=== PATIENT | female | born 1990 | race Caucasian/White ===

== ENCOUNTER 2022-10-10 17:49 | Emergency (ER) | payer OTHER, MEDICAID, SELFPAY ==
[2022-10-10] VITALS (16 sets, daily range): BP systolic 94–143; BP diastolic 44–70; PULSE 44–66; RESP 16–43; TEMP 36.1; O2SAT 95–100; BMI 23.0
--- NOTE | 2022-10-10 18:48 | ED_ITS ---
HPI - General Adult General Chief complaint: Abdominal Pain Stated complaint: Abd pain, vomiting, diarrhea x2 days Time Seen by Provider: 10/10/22 18:47 History of Present Illness HPI narrative: 32-year-old woman with no significant medical history presents with 36 hours of severe nausea vomiting and diarrhea. She continues to have diarrhea she is fatigued and she continues to have dry heaves in the emergency department even after IV Zofran. She had tried oral Zofran prior to arrival. She describes no fevers, cough, palpitations, headaches. Her belly is tender simply from the act of vomiting but otherwise unremarkable. She does not believe she is . She is not had similar events. She notes that she does regularly smoke about a g of marijuana daily. She tried a very hot shower and did not note that it made all that much of a difference. Related Data Allergies Allergy/AdvReac Type Severity Reaction Status Date / Time No Known Drug Allergies Allergy Verified 10/10/22 18:54 Review of Systems Review of Systems Narrative: Pertinent positive and negative findings as per HPI Exam Initial Vital Signs Initial Vital Signs: Vital Signs Temperature 96.9 F L 10/10/22 17:58 Pulse Rate 60 10/10/22 17:58 Respiratory Rate 16 10/10/22 17:58 Blood Pressure 126/58 L 10/10/22 17:58 Pulse Oximetry 95 10/10/22 17:58 Oxygen Delivery Method Room Air 10/10/22 17:58 General: Pale, appears fatigued, still with dry heaves HEENT: Moist mucous membranes, normal sclera with reactive pupils, Respiratory: Lungs are clear to auscultation, no wheezing no rales no rhonchi. Full and symmetrical air movement Cardiac: Regular rate and rhythm no murmurs no bruits Abdomen: Soft, mild diffuse tenderness without rebound or guarding, hyperactive bowel tones, no flank pain. Skin: Pale, Warm and dry, no rashes Neurologic: Grossly neurologically intact with no obvious asymmetries or abnormalities Extremities: No trauma, well perfused. No skin tenting to suggest severe dehydration Psych: Cooperative, appropriate insight and affect Course Orders Ordered: ED Orders 10/10/22 18:04 EKG-12 Lead Stat 10/10/22 18:40 Complete Blood Count AUTO DIFF Stat Comprehensive Metabolic Panel Stat Lipase Stat 10/10/22 20:00 GI Panel (Film Array) Stat 10/10/22 20:43 CT abdomen pelvis w con Stat Hydromorphone HCl (Hydromorphone 0.5 Mg Inj) 0.5 mg IV Q15MIN PRN PRN Reason: Pain, Last Admin: 10/10/22 20:50 Dose: 0.5 mg Documented By: NURIA Ondansetron HCl (Ondansetron 4 Mg/2 Ml Inj) 4 mg IV NOW PRN PRN Reason: Nausea And Vomiting Last Admin: 10/10/22 18:51 Dose: 4 mg Documented By: NURIA Discontinued Medications Diphenhydramine HCl (Diphenhydramine 50 Mg/Ml Vial) 25 mg IV NOW ONE Stop: 10/10/22 18:56 Last Admin: 10/10/22 19:08 Dose: 25 mg Documented By: NURIA Haloperidol (Haloperidol 5 Mg/Ml Vial) 2 mg IV NOW ONE Stop: 10/10/22 18:56 Last Admin: 10/10/22 19:11 Dose: 2 mg Documented By: NURIA Sodium Chloride (Normal Saline 0.9%) 1,000 mls @ 1,000 mls/hr IV BOLUS ONE Stop: 10/10/22 19:50 Last Infusion: 10/10/22 19:40 Dose: 0 mls/hr Documented By: Admin: 10/10/22 18:53 Dose: 1,000 mls/hr Documented By: NURIA Sodium Chloride (Normal Saline 0.9%) 1,000 mls @ 1,000 mls/hr IV BOLUS ONE Stop: 10/10/22 19:54 Last Infusion: 10/10/22 21:37 Dose: 0 mls/hr Documented By: Admin: 10/10/22 20:31 Dose: 1,000 mls/hr Documented By: NURIA Magnesium Sulfate (Magnesium Sulfate) 2 gm in 50 mls @ 150 mls/hr IV NOW ONE Stop: 10/10/22 20:06 Last Infusion: 10/10/22 20:29 Dose: 0 mls/hr Documented By: NURIA Co-signed By: LOVELY Admin: 10/10/22 20:05 Dose: 150 mls/hr Documented By: NURIA Co-signed By: LOVELY Vital Signs Vital signs: Vital Signs - 8 hr 10/10/22 17:58 10/10/22 18:57 10/10/22 19:00 Temperature 96.9 F L Pulse Rate 60 55 L 58 L Respiratory Rate 16 Blood Pressure 126/58 L Pulse Oximetry 95 100 Oxygen Delivery Method Room Air 10/10/22 19:30 10/10/22 19:32 10/10/22 19:32 Temperature Pulse Rate 44 L 45 L Respiratory Rate 26 H Blood Pressure 143/66 H Pulse Oximetry 100 100 Oxygen Delivery Method 10/10/22 20:00 10/10/22 20:01 10/10/22 20:01 Temperature Pulse Rate 49 L 54 L Respiratory Rate 22 28 H Blood Pressure 100/70 Pulse Oximetry 100 100 Oxygen Delivery Method Room Air 10/10/22 20:30 10/10/22 20:30 10/10/22 21:04 Temperature Pulse Rate 66 48 L Respiratory Rate 43 H 40 H Blood Pressure 108/66 Pulse Oximetry 100 Oxygen Delivery Method 10/10/22 21:11 10/10/22 21:11 Temperature Pulse Rate 52 L Respiratory Rate 22 Blood Pressure 105/51 L Pulse Oximetry 100 Oxygen Delivery Method Medical Decision Making Lab Data 10/10/22 18:40 10/10/22 18:40 Labs: Lab Results 10/10/22 10/10/22 10/10/22 Range/Units 18:40 18:40 20:00 WBC 11.7 H (4.5-11.0) X10^3/uL RBC 3.78 L (4.0-5.2) X10^6/uL Hgb 11.9 L (12.0-16.0) g/dL Hct 35.0 L (36-46) % MCV 92.7 (80-100) fL MCH 31.5 (26-34) PG MCHC 34.0 (30-36) % RDW 13.2 (11.6-14.8) % Plt Count 214 (150-400) X10^3/uL Neut % (Auto) 88.6 H (50-75) % Lymph % (Auto) 7.8 L (25-40) % [place] % (Auto) 3.1 (3-14) % Eos % (Auto) 0.0 L (2-4) % Baso % (Auto) 0.5 (0-2) % Neut # (Auto) 36158 H (1452-7051) /uL Lymph # (Auto) 900 L (9186-3971) /uL [place] # (Auto) 400 (0-900) /uL Eos # (Auto) 0 (0-450) /uL Baso # (Auto) 100 (0-100) /uL Sodium 138 (137-145) mmol/L Potassium 3.2 L (3.4-5.1) mmol/L Chloride 108 H (98-107) mmol/L Carbon Dioxide 15 L (22-32) mmol/L BUN 11 (7-17) mg/dL Creatinine 0.83 (0.52-1.04) mg/dL Estimated GFR > 60 (>60) mL/min BUN/Creatinine Ratio 13.3 (6-22) Glucose 131 H (70-100) mg/dL Calcium 9.2 (8.4-10.2) mg/dL Total Bilirubin 0.7 (0.2-1.3) mg/dL AST 30 (14-36) IU/L ALT 25 (<35) IU/L Alkaline Phosphatase 69 (38-126) U/L Total Protein 7.8 (6.3-8.2) g/dL Albumin 4.6 (3.5-5.0) g/dL Globulin 3.2 (1.7-4.1) g/dL Albumin/Globulin Ratio 1.4 (1.0-2.8) Lipase 122 (23-300) U/L Stl C. cayetanensis PCR Not detected (Not Detect) Stool Rotavirus (PCR) Not detected (Not Detect) Stool Adenovirus (PCR) Not detected (Not Detect) Stool Astrovirus (PCR) Not detected (Not Detect) Stool Cryptosporidium PCR Not detected (Not Detect) Stl E.coli Shiga Tox PCR Not detected (Not Detect) St Sh/Enteroin Ecoli PCR Not detected (Not Detect) Stool E coli O157 PCR Not Reportable Stl Enterotoxigenic E PCR Not detected (Not Detect) Stool EPEC (PCR) Not detected (Not Detect) Stl E. histolytica PCR Not detected (Not Detect) Stool Giardia Lamblia PCR Not detected (Not Detect) Stool Sapovirus (PCR) Not detected (Not Detect) Stl P. shigelloides PCR Not detected (Not Detect) St Y.enterocolitica PCR Not detected (Not Detect) Stool Vibrio (PCR) Not detected (Not Detect) Stl Vibrio cholerae PCR Not detected (Not Detect) Stl Enteroaggr Ecoli PCR Not detected (Not Detect) Stl Norovirus GI/GII PCR Not detected (Not Detect) Campylobacter (PCR) Not detected (Not Detect) C. difficile Tox (PCR) Not detected (Not Detect) Salmonella (PCR) Not detected (Not Detect) Point of Care Testing Test Results Negative Urine Dip Bedside Urine Glucose 100 mg/dl Bedside Urine Ketone +++ 80 Urine Specific [place] 1.020 Bedside Urine Occult Blood - Negative Bedside Urine pH 6.0 Bedside Urine Protein + 30 Bedside Urine Urobilinogen - Negative Bedside Urine Nitrite - Negative Bedside Urine Leukocytes - Negative Esterase Point of care testing: Point of Care Testing Test Results Negative Urine Dip Bedside Urine Glucose 100 mg/dl Bedside Urine Ketone +++ 80 Urine Specific [place] 1.020 Bedside Urine Occult Blood - Negative Bedside Urine pH 6.0 Bedside Urine Protein + 30 Bedside Urine Urobilinogen - Negative Bedside Urine Nitrite - Negative Bedside Urine Leukocytes - Negative Esterase MDM Narrative Medical decision making narrative: CC: 36 hours of severe nausea vomiting diarrhea. Is an acute complaint uncertain prognosis Complicating co-morbidities: Regular marijuana use Data collected from: patient, partner Differential considered: Viral gastroenteritis, cannabinoid hyperemesis syndrome, intra-abdominal infection Exam documented above, pertinent findings include: Fairly benign exam. Despite 36 hours of vomiting and diarrhea clinically she is not dramatically dehydrated. Lab Test results independently reviewed as above. Pertinent findings: CBC shows mild leukocytosis at 11.7 with neutrophils at 88.6%. Mild anemia at 11.9 and 35.0 Chemistries show mildly low potassium at 3.2. Creatinine is appropriate. Liver studies are unremarkable Lipase is reassuring Stool does not show Campylobacter C diff or Salmonella Independently reviewed EKG sinus Freddie at a rate of 48. QTC is 500 milliseconds. Nonspecific T-wave changes. No acute ischemia Imaging studies independently reviewed: CT scan shows findings suggestive of mild gastritis and colitis with no abscess bowel obstruction free fluid or air. Appendix is normal. Re-evaluations:730pm patient had a brief episode of sinus bradycardia to the mid 40s after IV Haldol was given. EKGs obtained. 845pm pain is increasing. Dilaudid is added for pain control. With no other significant abnormalities, CT scan of the abdomen is ordered. Patient is aware of concerns and current plans 12:20 a.m. patient is feeling significantly improved. Small dose of Dilaudid helped her body relax completely. She is now sleeping on Gatorade and finding that she is not having continued nausea. Has not had any additional diarrhea since coming to the emergency department Discussion: 32-year-old woman with acute nausea vomiting diarrhea with dehydration mild hypokalemia. Responded nicely to fluids Zofran a single dose of Dilaudid. We did discuss possibility of cannabinoid hyperemesis syndrome however I do not think that that is the etiology of her symptoms today. She is still considering stopping marijuana completely. She has Zofran at home to help with nausea. We discussed reasons to return to the emergency department including increasing pain, fevers or new findings. Questions are answered and she is safe for discharge home Discharge Plan Departure Patient Disposition: Home Clinical Impression: Gastroenteritis, Nausea vomiting and diarrhea Instructions: DI for Viral Gastroenteritis -- Adult Activity Restrictions/Additional Instructions: Thank you for coming in today Your blood work was actually very reassuring. The CT scan did not show any acute abnormalities would require surgical intervention. There was some minor swelling in the stomach and gut wall suggesting a gastroenteritis which is consistent with your presentation. You can use Zofran to help with nausea. I would recommend simple fluids and beginning eating with simple foods like bananas, rice, applesauce toast until your truly feeling back to normal. If you find that you are getting worse or develop any new symptoms, please feel free to return to the emergency department for further evaluation. Stand Alone Forms: Patient Portal/API
[2022-10-10] MEDS: ONDANSETRON 4 MG/2 ML INJ IV (18:51)
[2022-10-10] MEDS: SODIUM CHLORIDE 0.9% 1,000 ML 1000 ML IV ×2 (18:53→20:31)
[2022-10-10 18:59] LABS: Add Manual Diff / Slide Review NO; Basophils Absolute Auto 100 /uL (0-100); Basophils Percent Auto 0.5 % (0-2); Eosinophils Absolute Auto 0 /uL (0-450); Hemoglobin 11.9 g/dL (12.0-16.0); Lymphocytes Absolute Auto 900 /uL (1100-4500); Lymphocytes Percent Auto 7.8 % (25-40); Mean Corpuscular Hemoglobin 31.5 PG (26-34); Mean Corpuscular Volume 92.7 fL (80-100); Monocytes Absolute Auto 400 /uL (0-900); Monocytes Percent Auto 3.1 % (3-14); Neutrophils Absolute Auto 10300 /uL (1500-7000); Neutrophils Percent Auto 88.6 % (50-75); Platelet Count 214 X10^3/uL (150-400); Red Blood Cell Count 3.78 X10^6/uL (4.0-5.2); Red Cell Distribution Width 13.2 % (11.6-14.8); White Blood Cell Count 11.7 X10^3/uL (4.5-11.0)
[2022-10-10] MEDS: diphenhydrAMINE 50 MG/ML VIAL 25 MG IV (19:08)
[2022-10-10] MEDS: HALOPERIDOL 5 MG/ML VIAL 2 MG IV (19:11)
[2022-10-10 19:18] LABS: Alanine Aminotransferase 25 IU/L (<35); Albumin 4.6 g/dL (3.5-5.0); Albumin Globulin Ratio 1.4 (1.0-2.8); Alkaline Phosphatase 69 U/L (38-126); Aspartate Aminotransferase 30 IU/L (14-36); BUN Creatinine Ratio 13.3 (6-22); Bilirubin Total 0.7 mg/dL (0.2-1.3); Blood Urea Nitrogen 11 mg/dL (7-17); Calcium 9.2 mg/dL (8.4-10.2); Carbon Dioxide 15 mmol/L (22-32); Chloride 108 mmol/L (98-107); Estimated Glomerular Filt Rate > 60 mL/min (>60); Globulin 3.2 g/dL (1.7-4.1); Glucose 131 mg/dL (70-100); HEMOLYSIS < 15 (0-50); Lipase 122 U/L (23-300); Potassium 3.2 mmol/L (3.4-5.1); Sodium 138 mmol/L (137-145); Total Protein 7.8 g/dL (6.3-8.2)
[2022-10-10] MEDS: MAGNESIUM SULFATE 2 GM/50 ML PIGGYBACK IV (20:05)
--- NOTE | 2022-10-10 20:17 | PC.NURSE ---
Patient denies having any history of heart issues or bradycardia. Pt's significant other asked; What about that condition your mom has?. Patient responded that both her, and her mother, have an irregular rhythm. She states her mother had a full workup done and is fine, also stating that the patients heart is fine. I asked patient to clarify if she had a cardiac work up or has ever seen a spot machine operator. Patient responds with saying she has never seen a spot machine operator and has not had a work up for her heart, ever. Patient denies having shortness of breath, dizziness, or lightheaded. Pt only complains of N/V/D, abdominal cramps/pain.
--- NOTE | 2022-10-10 20:43 | DI.CT.S_ITS ---
PROCEDURE: CT ABDOMEN PELVIS W CON INDICATIONS: abdominal pain TECHNIQUE: After the administration of intravenous contrast, axial sections acquired from the lung bases to the pubic symphysis. Coronal and sagittal reformats were performed. For radiation dose reduction, the following was used: automated exposure control, adjustment of mA and/or kV according to patient size. COMPARISON: None. FINDINGS: Image quality: Excellent. Lung bases: Unremarkable. Heart: No significant findings. ABDOMEN: Liver: Unremarkable. Gallbladder: Gallbladder is within normal limits. Biliary ducts: Unremarkable. Pancreas: Unremarkable. Spleen: Unremarkable. Adrenal Glands: Unremarkable. Kidneys and Ureters: Unremarkable. Stomach and Bowel: There is suggestion of distal gastric wall thickening. No gross small bowel wall thickening. Questionable colonic wall thickening is also noted without significant mesenteric fat stranding. Appendix is visualized in right lower quadrant abdomen and show no gross abnormality. No abscess collection.. Peritoneum: No abnormal intraperitoneal fluid. No free air. Ventral Wall: No hernias. Abdominal Nodes: No retroperitoneal or mesenteric adenopathy by size criteria. Vessels: Aorta and inferior vena cava are normal in size. PELVIS: Pelvic Organs: Uterus and right ovary show no gross abnormality. 1.2 cm left ovarian cyst is noted. Bladder: Unremarkable. Pelvic Nodes: No enlarged lymph nodes. Miscellaneous: No hernias are seen. Bones: No suspicious bony lesions. No acute vertebral body compression fracture. IMPRESSION: 1. Finding is suggestive of mild gastritis and colitis. No abscess collection. No bowel obstruction. No free fluid or free air. Normal appendix. 2. Nonspecific 1.2 cm left ovarian cyst. Dictated by: Dustin Layton M.D. on 10/10/2022 at 21:14 Approved by: Dustin Layton M.D. on 10/10/2022 at 21:17
[2022-10-10] MEDS: HYDROMORPHONE 0.5 MG INJ IV (20:50)
[2022-10-10 21:46] LABS: Campylobacter Not Detected (Not Detect); Clostridium difficile toxin AB Not Detected (Not Detect); Cryptosporidium Not Detected (Not Detect); Cyclospora cayetanensis Not Detected (Not Detect); Enteroaggregative E.coli Not Detected (Not Detect); Enteropathogenic E.coli Not Detected (Not Detect); Enterotoxigenic E.coli It/st Not Detected (Not Detect); Plesiomonsa shigelloides Not Detected (Not Detect); Salmonella Not Detected (Not Detect); Shiga-like toxin-prod E.coli Not Detected (Not Detect); Shigella/Enteroinvasive E.coli Not Detected (Not Detect); Vibrio Not Detected (Not Detect); Vibrio cholerae Not Detected (Not Detect); Yersinia enterocolitica Not Detected (Not Detect)
[2022-10-10 21:47] LABS: Adenovirus F 40/41 Not Detected (Not Detect); Astrovirus Not Detected (Not Detect); Entamoeba histolytica Not Detected (Not Detect); Giardia lamblia Not Detected (Not Detect); Norovirus GI/GII Not Detected (Not Detect); Rotavirus A Not Detected (Not Detect); Sapovirus Not Detected (Not Detect)
[2022-10-11] VITALS: PULSE 60; RESP 22; O2SAT 100
[2022-10-11 00:01] VITALS: BP 92/51; PULSE 52; RESP 17; O2SAT 100
== END 2022-10-11 00:33 | disposition home or self-care (01) ==
PROVIDERS: Emergency Medicine; Emergency Provider Emergency Medicine
DX: K52.9 Noninfective gastroenteritis and colitis, unspecified (principal); R11.2 Nausea with vomiting, unspecified
CPT/HCPCS: 36415; 74177; 80053; 81003; 81025; 83690; 85025; 87507; 93005; 93010; 96361; 96374; 96375; 99284; J1170; J1200; J1630; J2405; J3475; Q9967

== ENCOUNTER 2023-01-18 19:06 | Emergency (ER) | payer OTHER, MEDICAID, SELFPAY ==
[2023-01-18 19:14] VITALS: BP 131/76; PULSE 67; RESP 18; TEMP 36.8; O2SAT 100; BMI 22.3
[2023-01-18] MEDS: SODIUM CHLORIDE 0.9% 1,000 ML 1000 ML IV (20:37)
[2023-01-18] MEDS: ONDANSETRON 4 MG/2 ML INJ IV (20:39)
[2023-01-18 23:45] LABS: Add Manual Diff / Slide Review NO; Basophils Absolute Auto 100 /uL (0-100); Basophils Percent Auto 0.8 % (0-2); Eosinophils Absolute Auto 0 /uL (0-450); Eosinophils Percent Auto 0.3 % (2-4); Hematocrit 35.3 % (36-46); Lymphocytes Absolute Auto 1000 /uL (1100-4500); Mean Corpuscular Hemoglobin 31.8 PG (26-34); Mean Corpuscular Volume 93.7 fL (80-100); Monocytes Absolute Auto 400 /uL (0-900); Monocytes Percent Auto 4.2 % (3-14); Neutrophils Absolute Auto 7400 /uL (1500-7000); Neutrophils Percent Auto 83.7 % (50-75); Platelet Count 255 X10^3/uL (150-400); Red Blood Cell Count 3.77 X10^6/uL (4.0-5.2); White Blood Cell Count 8.9 X10^3/uL (4.5-11.0)
[2023-01-18 23:50] LABS: Alanine Aminotransferase 25 IU/L (<35); Albumin 4.7 g/dL (3.5-5.0); Albumin Globulin Ratio 1.3 (1.0-2.8); Alkaline Phosphatase 72 U/L (38-126); Aspartate Aminotransferase 52 IU/L (14-36); Bilirubin Total 0.5 mg/dL (0.2-1.3); Blood Urea Nitrogen 9 mg/dL (7-17); Calcium 9.7 mg/dL (8.4-10.2); Carbon Dioxide 22 mmol/L (22-32); Chloride 105 mmol/L (98-107); Estimated Glomerular Filt Rate > 60 mL/min (>60); Globulin 3.7 g/dL (1.7-4.1); Glucose 105 mg/dL (70-100); HEMOLYSIS 17 (0-50); Lipase 112 U/L (23-300); Potassium 3.8 mmol/L (3.4-5.1); Sodium 138 mmol/L (137-145); Total Protein 8.4 g/dL (6.3-8.2)
[2023-01-18 23:57] VITALS: BP 99/54; PULSE 51; RESP 18; TEMP 36.6; O2SAT 98
--- NOTE | 2023-01-19 00:24 | PC.NURSE ---
pt given water to drink and tolerated it well
--- NOTE | 2023-01-19 01:59 | ED_ITS ---
HPI - General Adult General Chief complaint: Abdominal Pain Stated complaint: Gastroenteritis Time Seen by Provider: 01/19/23 01:59 Source: patient Mode of arrival: Ambulatory History of Present Illness HPI narrative: 33-year-old woman who presents with acute nausea vomiting and diarrhea starting this afternoon initially with diarrhea. She took Zofran almost immediately after the diarrhea but then had an episode of emesis within 10 minutes of taking the Zofran. This is her 3rd episode of probably viral gastroenteritis the summer. The last time that she was sick she started with a high fever and symptoms lasted for approximately 10 days. Today she has not had a fever but multiple other family members have similar symptoms. She briefly wondered if this could be cannabinoid hyperemesis syndrome however with fever and other fam maximo members this is less likely. She has been weaning off marijuana and has had only CBD versions for the last week. Related Data Allergies Allergy/AdvReac Type Severity Reaction Status Date / Time No Known Drug Allergies Allergy Verified 10/10/22 18:54 Review of Systems Review of Systems Narrative: Pertinent positive and negative findings as per HPI Patient History Social History Smoking Status: Never smoker Smoking Status: Never smoker Substance Use Type: does not use Exam Initial Vital Signs Initial Vital Signs: Vital Signs Temperature 98.3 F 01/18/23 19:14 Pulse Rate 67 01/18/23 19:14 Respiratory Rate 18 01/18/23 19:14 Blood Pressure 131/76 01/18/23 19:14 Pulse Oximetry 100 01/18/23 19:14 Oxygen Delivery Method Room Air 01/18/23 19:14 General: Healthy appearing, in no acute distress. Able to give a complete and coherent history. Well-nourished well-developed HEENT: Moist mucous membranes, normal sclera with reactive pupils, Respiratory: Full and symmetrical air movement Cardiac: Regular rate and rhythm no murmurs no bruits Abdomen: Soft, nontender, hyperactive bowel tones, no flank pain Skin: Warm and dry, no rashes Neurologic: Grossly neurologically intact with no obvious asymmetries or abnormalities Extremities: No trauma, well perfused Psych: Cooperative, appropriate insight and affect Course Orders Ordered: ED Orders 01/18/23 19:34 GI Panel (Film Array) Stat 01/18/23 20:32 Complete Blood Count AUTO DIFF Stat Comprehensive Metabolic Panel Stat Lipase Stat Ondansetron HCl (Ondansetron 4 Mg Odt) 4 mg PO NOW PRN PRN Reason: Nausea And Vomiting Ondansetron HCl (Ondansetron 4 Mg/2 Ml Inj) 4 mg IV NOW PRN PRN Reason: Nausea And Vomiting Last Admin: 01/18/23 20:39 Dose: 4 mg Documented By: SB Discontinued Medications Sodium Chloride (Normal Saline 0.9%) 1,000 mls @ 1,000 mls/hr IV BOLUS ONE Stop: 01/18/23 20:33 Last Infusion: 01/18/23 21:45 Dose: 0 mls/hr Documented By: Admin: 01/18/23 20:37 Dose: 1,000 mls/hr Documented By: ADAIR Vital Signs Vital signs: Vital Signs - 8 hr 01/18/23 19:14 01/18/23 23:57 Temperature 98.3 F 97.9 F Pulse Rate 67 51 L Respiratory Rate 18 18 Blood Pressure 131/76 99/54 L Pulse Oximetry 100 98 Oxygen Delivery Method Room Air Room Air Medical Decision Making Lab Data 01/18/23 20:32 01/18/23 20:32 Labs: Lab Results 01/18/23 01/18/23 Range/Units 20:32 20:32 WBC 8.9 (4.5-11.0) X10^3/uL RBC 3.77 L (4.0-5.2) X10^6/uL Hgb 12.0 (12.0-16.0) g/dL Hct 35.3 L (36-46) % MCV 93.7 (80-100) fL MCH 31.8 (26-34) PG MCHC 34.0 (30-36) % RDW 13.0 (11.6-14.8) % Plt Count 255 (150-400) X10^3/uL Neut % (Auto) 83.7 H (50-75) % Lymph % (Auto) 11.0 L (25-40) % [place] % (Auto) 4.2 (3-14) % Eos % (Auto) 0.3 L (2-4) % Baso % (Auto) 0.8 (0-2) % Neut # (Auto) 7400 H (6379-0801) /uL Lymph # (Auto) 1000 L (2983-9898) /uL [place] # (Auto) 400 (0-900) /uL Eos # (Auto) 0 (0-450) /uL Baso # (Auto) 100 (0-100) /uL Sodium 138 (137-145) mmol/L Potassium 3.8 (3.4-5.1) mmol/L Chloride 105 (98-107) mmol/L Carbon Dioxide 22 (22-32) mmol/L BUN 9 (7-17) mg/dL Creatinine 0.75 (0.52-1.04) mg/dL Estimated GFR > 60 (>60) mL/min BUN/Creatinine Ratio 12.0 (6-22) Glucose 105 H (70-100) mg/dL Calcium 9.7 (8.4-10.2) mg/dL Total Bilirubin 0.5 (0.2-1.3) mg/dL AST 52 H (14-36) IU/L ALT 25 (<35) IU/L Alkaline Phosphatase 72 (38-126) U/L Total Protein 8.4 H (6.3-8.2) g/dL Albumin 4.7 (3.5-5.0) g/dL Globulin 3.7 (1.7-4.1) g/dL Albumin/Globulin Ratio 1.3 (1.0-2.8) Lipase 112 (23-300) U/L Point of Care Testing Test Results Negative Urine Dip Bedside Urine Glucose Negative Bedside Urine Bilirubin - Negative Bedside Urine Ketone - Negative Urine Specific [place] 1.010 Bedside Urine Occult Blood - Negative Bedside Urine pH 6.0 Bedside Urine Urobilinogen - Negative Bedside Urine Nitrite - Negative Bedside Urine Leukocytes - Negative Esterase Point of care testing: Point of Care Testing Test Results Negative Urine Dip Bedside Urine Glucose Negative Bedside Urine Bilirubin - Negative Bedside Urine Ketone - Negative Urine Specific [place] 1.010 Bedside Urine Occult Blood - Negative Bedside Urine pH 6.0 Bedside Urine Urobilinogen - Negative Bedside Urine Nitrite - Negative Bedside Urine Leukocytes - Negative Esterase [facility] Narrative Medical decision making narrative: CC: Acute onset nausea and vomiting, diarrhea Complicating co-morbidities: 2 prior episodes with similar findings and ER visits the summer Data collected from: patient, Differential considered: Viral gastroenteritis, bacterial etiology, cannabinoid hyperemesis syndrome, Exam documented above, pertinent findings include: No severe findings, she is not acutely tachycardic or hypotensive. She does not have an acute surgical abdomen Lab Test results independently reviewed as above. Pertinent findings: CBC is reassuring Chemistries are unremarkable with no evidence of renal failure or electrolyte abnormalities Discussion: 33-year-old woman with nausea vomiting and diarrhea. Feeling significantly better after a L of fluid and IV Zofran. She has passed her oral challenge. The abdominal cramping and diarrhea have slowed significantly and she has not had any diarrhea since being in the emergency department she is not had any further episodes of vomiting. Reviewed labs with her. She has Zofran available at home. At this time there is no evidence of acute surgical abdomen, bowel obstruction, sepsis, renal failure or significant electrolyte abnormality. She is safe for discharge home Discharge Plan Departure Patient Disposition: Home Clinical Impression: Abdominal pain, vomiting, and diarrhea Instructions: DI for Viral Gastroenteritis -- Adult Activity Restrictions/Additional Instructions: Thank you for coming in today I am sorry you seem to be experiencing the vast array of viruses causing puking and diarrhea this summer. Your chemistries are reassuring, there is no evidence of kidney failure electrolyte abnormalities. No signs of bacterial infection. You responded nicely to IV fluids and IV Zofran. At this time I believe it is safe for you to go home. It sounds like you have plenty of ondansetron/Zofran at home and you are using it appropriately. If you find that you are getting worse or develop any new symptoms, please feel free to return to the emergency department for further evaluation. Stand Alone Forms: Patient Portal/API
[2023-01-19 02:13] VITALS: BP 107/69; PULSE 74; RESP 18; O2SAT 94
== END 2023-01-19 02:16 | disposition home or self-care (01) ==
PROVIDERS: Emergency Provider Emergency Medicine
DX: R10.9 Unspecified abdominal pain (principal); R11.2 Nausea with vomiting, unspecified; R19.7 Diarrhea, unspecified
CPT/HCPCS: 36415; 80053; 81003; 81025; 83690; 85025; 96361; 96374; 99284; J2405

== ENCOUNTER 2023-07-08 20:40 | Emergency (ER) | payer OTHER, MEDICAID, SELFPAY ==
[2023-07-08 20:45] VITALS: BP 118/71; PULSE 71; RESP 12; TEMP 36.8; O2SAT 99; BMI 22.3
--- NOTE | 2023-07-08 20:49 | DI.RAD.S_ITS ---
PROCEDURE: XR HAND LT MIN 3V INDICATIONS: injury to left hand/left pinky TECHNIQUE: 3 views of the hand(s) acquired. COMPARISON: None. FINDINGS: Bones: No fractures or dislocations. Carpal bones are normally aligned. No suspicious bony lesions. Soft tissues: No suspicious soft tissue calcifications. IMPRESSION: No gross acute left hand fracture or dislocation. Dictated by: Dustin Layton M.D. on 07/08/2023 at 22:03 Approved by: Dustin Layton M.D. on 07/08/2023 at 22:04
[2023-07-08 22:29] VITALS: BP 117/66; PULSE 62; O2SAT 100
[2023-07-08 22:30] VITALS: PULSE 58; O2SAT 100
[2023-07-08 22:31] VITALS: BP 107/68; PULSE 60; O2SAT 100
[2023-07-08 23:00] VITALS: BP 108/69; PULSE 59; RESP 18; O2SAT 100
--- NOTE | 2023-07-08 23:17 | ED_ITS ---
HPI - Extremity Injury (Upper) General Chief Complaint: Extremity Injury, Upper Stated Complaint: injured lt hand Time Seen by Provider: 07/08/23 22:34 Mode of arrival: Family Vehicle History of Present Illness HPI narrative: 33-year-old female presents for left little finger injury. Patient states that she was trying to pull a jacket off of her hook and in the process her finger got snagged on the dewey. She is afraid she may have broken her finger Related Data Allergies Allergy/AdvReac Type Severity Reaction Status Date / Time No Known Drug Allergies Allergy Verified 07/08/23 20:48 Review of Systems Review of Systems Narrative: Negative except as noted above Patient History Social History Smoking Status: Never smoker Smoking Status: Never smoker Substance Use Type: marijuana Exam Initial Vital Signs Initial Vital Signs: Vital Signs Temperature 98.3 F 07/08/23 20:45 Pulse Rate 71 07/08/23 20:45 Respiratory Rate 12 07/08/23 20:45 Blood Pressure 118/71 07/08/23 20:45 Pulse Oximetry 99 07/08/23 20:45 Oxygen Delivery Method Room Air 07/08/23 20:45 Const: Awake, alert, no acute distress, nontoxic appearing MSK: Bruising along dorsum of left pinky finger. Full range of motion, capillary refill less than 2 seconds Skin: Warm, Dry, intact, no rashes Neuro: AO x3, CN II-XII grossly intact, moves all extremities Course Orders Ordered: ED Orders 07/08/23 20:49 XR hand LT min 3V Stat Vital Signs Vital signs: Vital Signs - 8 hr 07/08/23 20:45 Temperature 98.3 F Pulse Rate 71 Respiratory Rate 12 Blood Pressure 118/71 Pulse Oximetry 99 Oxygen Delivery Method Room Air MDM - Extremity Injury (Upper) Differential Diagnosis Differential diagnosis: Likely sprain and strain of wrist, fracture of wrist and finger sprain MDM Narrative Medical decision making narrative: Accidental finger injury. Neurovascularly intact with full range of motion. X- rays negative for acute fracture. Placed in tressa tape for pain control and recommended Tylenol and Motrin for discomfort. Discharge Plan Departure Patient Disposition: Home Clinical Impression: Finger sprain Instructions: DI for Finger Sprain Activity Restrictions/Additional Instructions: Wear tressa tape for the next 24-48 hours for comfort. Apply ice as needed. Take Tylenol and Motrin for pain. Referrals: Trent Rocha MD [Primary Care Provider] - Stand Alone Forms: Patient Portal/API
== END 2023-07-08 23:25 | disposition home or self-care (01) ==
PROVIDERS: Emergency Provider Emergency Medicine; PCP Family Medicine
DX: S63.617A Unspecified sprain of left little finger, initial encounter (principal); X58.XXXA Exposure to other specified factors, initial encounter
CPT/HCPCS: 73130; 99281; 99283

== ENCOUNTER 2024-01-24 10:59 | Emergency (ER) | payer OTHER, MEDICAID, SELFPAY ==
[2024-01-24] VITALS (7 sets, daily range): BP systolic 105–124; BP diastolic 55–78; PULSE 48–69; RESP 18; TEMP 36.9; O2SAT 100; BMI 22.3
[2024-01-24 11:39] LABS: Add Manual Diff / Slide Review NO; Basophils Absolute Auto 100 /uL (0-100); Eosinophils Absolute Auto 100 /uL (0-450); Eosinophils Percent Auto 0.9 % (2-4); Hematocrit 37.6 % (36-46); Hemoglobin 12.8 g/dL (12.0-16.0); Lymphocytes Absolute Auto 1700 /uL (1100-4500); Lymphocytes Percent Auto 25.6 % (25-40); Mean Corpuscular HGB Conc 34.2 % (30-36); Mean Corpuscular Hemoglobin 31.8 PG (26-34); Monocytes Absolute Auto 500 /uL (0-900); Neutrophils Absolute Auto 4300 /uL (1500-7000); Neutrophils Percent Auto 65.5 % (50-75); Platelet Count 265 X10^3/uL (150-400); Red Blood Cell Count 4.04 X10^6/uL (4.0-5.2); Red Cell Distribution Width 13.4 % (11.6-14.8); White Blood Cell Count 6.6 X10^3/uL (4.5-11.0)
[2024-01-24 11:42] LABS: Alanine Aminotransferase 23 IU/L (<35); Albumin 4.9 g/dL (3.5-5.0); Albumin Globulin Ratio 1.4 (1.0-2.8); Alkaline Phosphatase 80 U/L (38-126); Aspartate Aminotransferase 32 IU/L (14-36); Bilirubin Total 0.8 mg/dL (0.2-1.3); Blood Urea Nitrogen 5 mg/dL (7-17); Calcium 9.7 mg/dL (8.4-10.2); Carbon Dioxide 18 mmol/L (22-32); Chloride 105 mmol/L (98-107); Estimated Glomerular Filt Rate > 60 mL/min (>60); Globulin 3.6 g/dL (1.7-4.1); Glucose 95 mg/dL (70-100); HEMOLYSIS < 15 (0-50); Lipase 92 U/L (23-300); Potassium 3.9 mmol/L (3.4-5.1); Sodium 136 mmol/L (137-145); Total Protein 8.5 g/dL (6.3-8.2)
--- NOTE | 2024-01-24 12:07 | ED.ABDPAIN ---
HPI - Abdominal Pain General Chief Complaint: Abdominal Pain Stated Complaint: Intense stomach pain Time Seen by Provider: 01/24/24 12:05 Source: patient Mode of arrival: Ambulatory History of Present Illness HPI narrative: 34-year-old female with no significant past medical history comes into the ED for evaluation of abdominal pain nausea vomiting ongoing persistent for the past year. She states that she has been having intermittent pain and swelling to her abdomen for the past year, was supposed to get a colonoscopy and endoscopy of May 2023 but was unable to do so due to the fact that her symptoms were ?bad. She states that it has been waxing and waning but worse yesterday therefore coming to the ED for further evaluation treatment. No trauma no falls no melanotic stools no other GI/ symptoms at this time. Patient also stating that she has been having intermittent diarrhea but no antibiotics recently. Related Data Previous Rx's Medication Instructions Recorded dicyclomine 10 mg capsule 10 mg PO BID 14 days #28 caps 01/24/24 Allergies Allergy/AdvReac Type Severity Reaction Status Date / Time No Known Drug Allergies Allergy Verified 01/24/24 11:12 Review of Systems Review of Systems Narrative: HEENT: Denies headache, eye drainage, eye irritation, head trauma, sore throat, voice change Cardiovascular: Denies any chest pain, palpitations, shortness of breath, tachycardia Respiratory: Denies any shortness of breath, cough, wheeze, stridor GI/: Denies any bright red blood per rectum, melanotic stools, urinary frequency, urinary retention, dysuria, hematuria. Positive abdominal pain nausea vomiting diarrhea MSK: Denies any joint pain, muscle pains, swelling Skin: Denies any rashes, lesions, discoloration Neuro: Denies any headache, lightheadedness, dizziness, fainting, weakness Psych: Denies SI/HI Patient History Social History Smoking Status: Never smoker Smoking Status: Never smoker alcohol intake frequency: 0-2 drinks per day Substance Use Type: marijuana Exam Narrative Exam Narrative: General: Cooperative, comfortable, well-developed, not in acute distress HEENT: Normocephalic, atraumatic, PERRLA, normal sclera, eyelids normal, Neck: Active full range of motion, atraumatic Chest: Normal to inspection, negative crepitus, no overlying erythema ecchymosis Respiratory: Normal respiratory effort, not in acute respiratory distress, clear to auscultation bilaterally negative cough, wheeze, tachypnea, rhonchi, rales Cardiology: Regular rate rhythm negative gallop, murmur, rubs GI/: Normal to inspection, soft, nonrigid, no tenderness to palpation, exam deferred MSK: Full range of active range of motion of all 4 extremities, atraumatic Skin: No rashes lesions noted Neuro: Alert awake oriented x3, moves all 4 extremities spontaneously, cranial nerves intact, able to answer all questions appropriately follows commands appropriately Psych: Cooperative, negative suicidal or homicidal ideations Initial Vital Signs Initial Vital Signs: Vital Signs Temperature 98.4 F 01/24/24 11:07 Pulse Rate 64 01/24/24 11:07 Respiratory Rate 18 01/24/24 11:07 Blood Pressure 124/78 01/24/24 11:07 Pulse Oximetry 100 01/24/24 11:07 Oxygen Delivery Method Room Air 01/24/24 11:07 Course Orders Ordered: ED Orders 01/24/24 11:16 EKG-12 Lead Stat 01/24/24 11:20 Complete Blood Count AUTO DIFF Stat Comprehensive Metabolic Panel Stat Lipase Stat 01/24/24 12:08 Ammonia (NH3) Stat Complete Blood Count AUTO DIFF Stat Comprehensive Metabolic Panel Stat Lipase Stat 01/24/24 12:11 CT abdomen pelvis w con Stat Ondansetron HCl (Ondansetron 4 Mg/2 Ml Inj) 4 mg IV NOW PRN PRN Reason: Nausea And Vomiting Last Admin: 01/24/24 12:44 Dose: 4 mg Documented By: NURIA Ondansetron HCl (Ondansetron 4 Mg Odt) 4 mg PO NOW PRN PRN Reason: Nausea And Vomiting Discontinued Medications Sodium Chloride (Normal Saline 0.9%) 1,000 mls @ 1,000 mls/hr IV BOLUS ONE Stop: 01/24/24 13:07 Last Admin: 01/24/24 12:32 Dose: 1,000 mls/hr Documented By: NURIA Ketorolac Tromethamine (Ketorolac 30 Mg/Ml Vial) 30 mg IV NOW ONE Stop: 01/24/24 13:57 Last Admin: 01/24/24 14:12 Dose: 30 mg Documented By: SEEMA Morphine Sulfate (Morphine 2 Mg/Ml Inj) 2 mg IV NOW ONE Stop: 01/24/24 12:09 Last Admin: 01/24/24 12:45 Dose: 2 mg Documented By: NURIA Vital Signs Vital signs: Vital Signs - 8 hr 01/24/24 11:07 01/24/24 12:54 01/24/24 13:04 Temperature 98.4 F Pulse Rate 64 62 69 Respiratory Rate 18 Blood Pressure 124/78 Pulse Oximetry 100 100 100 Oxygen Delivery Method Room Air Room Air 01/24/24 13:30 01/24/24 14:00 01/24/24 14:17 Temperature Pulse Rate 58 L 55 L 48 L Respiratory Rate Blood Pressure Pulse Oximetry 100 100 100 Oxygen Delivery Method 01/24/24 14:17 Temperature Pulse Rate Respiratory Rate Blood Pressure 107/62 Pulse Oximetry Oxygen Delivery Method MDM - Abdominal Pain Lab Data 01/24/24 11:20 01/24/24 11:20 Labs: Lab Results 01/24/24 Range/Units 11:20 WBC 6.6 (4.5-11.0) X10^3/uL RBC 4.04 (4.0-5.2) X10^6/uL Hgb 12.8 (12.0-16.0) g/dL Hct 37.6 (36-46) % MCV 93.0 (80-100) fL MCH 31.8 (26-34) PG MCHC 34.2 (30-36) % RDW 13.4 (11.6-14.8) % Plt Count 265 (150-400) X10^3/uL Neut % (Auto) 65.5 (50-75) % Lymph % (Auto) 25.6 (25-40) % [place] % (Auto) 7.0 (3-14) % Eos % (Auto) 0.9 L (2-4) % Baso % (Auto) 1.0 (0-2) % Neut # (Auto) 4300 (2801-5500) /uL Lymph # (Auto) 1700 (9434-7158) /uL [place] # (Auto) 500 (0-900) /uL Eos # (Auto) 100 (0-450) /uL Baso # (Auto) 100 (0-100) /uL Sodium 136 L (137-145) mmol/L Potassium 3.9 (3.4-5.1) mmol/L Chloride 105 (98-107) mmol/L Carbon Dioxide 18 L (22-32) mmol/L BUN 5 L (7-17) mg/dL Creatinine 0.84 (0.52-1.04) mg/dL Estimated GFR > 60 (>60) mL/min BUN/Creatinine Ratio 6.0 (6-22) Glucose 95 (70-100) mg/dL Calcium 9.7 (8.4-10.2) mg/dL Total Bilirubin 0.8 (0.2-1.3) mg/dL AST 32 (14-36) IU/L ALT 23 (<35) IU/L Alkaline Phosphatase 80 (38-126) U/L Total Protein 8.5 H (6.3-8.2) g/dL Albumin 4.9 (3.5-5.0) g/dL Globulin 3.6 (1.7-4.1) g/dL Albumin/Globulin Ratio 1.4 (1.0-2.8) Lipase 92 (23-300) U/L Point of care testing: Point of Care Testing Test Results Negative Urine Dip Bedside Urine Glucose Negative Bedside Urine Bilirubin - Negative Bedside Urine Ketone +/- 5 Urine Specific [place] 1.015 Bedside Urine Occult Blood - Negative Bedside Urine pH 6.0 Bedside Urine Protein - Negative Bedside Urine Urobilinogen +/- 1mg Bedside Urine Nitrite - Negative Bedside Urine Leukocytes - Negative Esterase Imaging Data CT scan - abdomen/pelvis: Radiologist's Impression: PROCEDURE: CT ABDOMEN PELVIS W CON INDICATIONS: diffuse abd pain TECHNIQUE: After the administration of intravenous contrast, axial sections acquired from the lung bases to the pubic symphysis. Coronal and sagittal reformats were performed. For radiation dose reduction, the following was used: automated exposure control, adjustment of mA and/or kV according to patient size. COMPARISON: [facility], CT, CT ABDOMEN PELVIS W CON, 10/10/2022, 20:52. FINDINGS: Image quality: Diagnostic. Lower Chest: No significant findings. ABDOMEN: Liver: No solid mass. Gallbladder: No radiopaque gallstones or wall thickening. Biliary ducts: No biliary dilation. Pancreas: No ductal dilation. Spleen: Size is within normal limits. Adrenal Glands: No adrenal nodules. Kidneys and Ureters: No hydronephrosis. No solid mass. No complex renal cystic lesion which requires follow up. Stomach and Bowel: Normal colonic caliber, without significant wall thickening. Normal appendix. Peritoneum: No abnormal intraperitoneal fluid. No free air. Ventral Wall: No significant ventral hernia. Abdominal Nodes: No retroperitoneal or mesenteric adenopathy by size criteria. Vessels: Aorta and inferior vena cava are normal in size. PELVIS: Pelvic Organs: Hypodensity within the left aspect of the uterus measuring up to 2 centimeters, may represent a fibroid. Bladder: No bladder wall thickening, accounting for underdistention. Pelvic Nodes: No enlarged lymph nodes. Miscellaneous: No inguinal hernias are seen. Bones: No aggressive osseous abnormality. IMPRESSION: No acute findings within the abdomen or pelvis to explain patient's symptoms. MDM Narrative Medical decision making narrative: Patient is a 34-year-old female history of no significance, presents for abdominal pain diarrhea nausea vomiting ongoing and intermittent for the past year. Lab work unremarkable for any acute findings, patient does have an appointment with her GI doctor for colonoscopy. Symptoms more likely secondary to possible IBS, we will sent home on [place] strict return precautions given safe for discharge home with outpatient follow-up Discharge Plan Departure Patient Disposition: Home Clinical Impression: Abdominal pain Activity Restrictions/Additional Instructions: Please follow-up with GI for your scheduled appointment Please read the discharge instructions sheet carefully and bring all papers to all doctor follow-up visits, as it may contain information that your doctor may want to see. Disease processes change and evolve, if your symptoms worsen or if you develop any new symptoms that are concerning to you please return for evaluation. Your evaluation today does not show any evidence of any life-threatening/serious illnesses requiring admission to the hospital or surgery. Please follow-up with your doctor for re-evaluation in approximately 1 day. Seek immediate medical attention for any worrisome symptoms. Prescriptions: New dicyclomine 10 mg capsule 10 mg PO BID 14 Days Qty: 28 0RF Referrals: Trent Rocha MD [Primary Care Provider] - Stand Alone Forms: Patient Portal/API
--- NOTE | 2024-01-24 12:11 | DI.CT.S_ITS ---
PROCEDURE: CT ABDOMEN PELVIS W CON INDICATIONS: diffuse abd pain TECHNIQUE: After the administration of intravenous contrast, axial sections acquired from the lung bases to the pubic symphysis. Coronal and sagittal reformats were performed. For radiation dose reduction, the following was used: automated exposure control, adjustment of mA and/or kV according to patient size. COMPARISON: [facility], CT, CT ABDOMEN PELVIS W CON, 10/10/2022, 20:52. FINDINGS: Image quality: Diagnostic. Lower Chest: No significant findings. ABDOMEN: Liver: No solid mass. Gallbladder: No radiopaque gallstones or wall thickening. Biliary ducts: No biliary dilation. Pancreas: No ductal dilation. Spleen: Size is within normal limits. Adrenal Glands: No adrenal nodules. Kidneys and Ureters: No hydronephrosis. No solid mass. No complex renal cystic lesion which requires follow up. Stomach and Bowel: Normal colonic caliber, without significant wall thickening. Normal appendix. Peritoneum: No abnormal intraperitoneal fluid. No free air. Ventral Wall: No significant ventral hernia. Abdominal Nodes: No retroperitoneal or mesenteric adenopathy by size criteria. Vessels: Aorta and inferior vena cava are normal in size. PELVIS: Pelvic Organs: Hypodensity within the left aspect of the uterus measuring up to 2 centimeters, may represent a fibroid. Bladder: No bladder wall thickening, accounting for underdistention. Pelvic Nodes: No enlarged lymph nodes. Miscellaneous: No inguinal hernias are seen. Bones: No aggressive osseous abnormality. IMPRESSION: No acute findings within the abdomen or pelvis to explain patient's symptoms. Dictated by: Hardeep Miller M.D. on 01/24/2024 at 14:05 Approved by: Hardeep Miller M.D. on 01/24/2024 at 14:11
[2024-01-24] MEDS: SODIUM CHLORIDE 0.9% 1,000 ML 1000 ML IV (12:32)
--- NOTE | 2024-01-24 12:42 | EKG_ITS ---
[address] [address] Test Date: 2024-01-24 Pat Name: Cruz Zimmer Department: [facility] Room: Gender: Female Wagon Person: KEVIN : 1990 Requested By: Order Number: [id number] Reading MD: Dean Mueller MD Measurements Intervals [place] Rate: 57 P: 11 MN: 136 QRS: 67 QRSD: 94 T: 35 QT: 460 QTc: 447 Interpretive Statements Sinus bradycardia Electronically Signed On 01-24-2024 13:49:56 PDT by Dean Mueller MD
[2024-01-24] MEDS: ONDANSETRON 4 MG/2 ML INJ IV (12:44)
[2024-01-24] MEDS: MORPHINE 2 MG/ML INJ IV (12:45)
[2024-01-24] MEDS: KETOROLAC 30 MG/ML VIAL IV (14:12)
--- NOTE | 2024-01-24 15:25 | PC.NURSE ---
Lab called to notify RN that an ammonia level could not be run since no sample had been received. Lab-Edilia -stated she would cancel the lab as the patient had already discharged from the ER.
== END 2024-01-24 14:52 | disposition home or self-care (01) ==
PROVIDERS: Emergency Provider Student in an Organized Health Care Education/Training Program; PCP Family Medicine
DX: R10.9 Unspecified abdominal pain (principal); R11.2 Nausea with vomiting, unspecified
CPT/HCPCS: 36415; 74177; 80053; 81003; 81025; 83690; 85025; 93005; 93010; 96361; 96374; 96375; 99284; J1885; J2270; J2405; Q9967